=== PATIENT | male | born 1940 | race Caucasian/White ===

== ENCOUNTER 2017-07-17 09:17 | Inpatient (IN) | payer OTHER ==
[2017-06-18 11:48] VITALS: BMI 41.0
--- NOTE | 2017-06-18 12:24 | PAT Medication Instructions ---
Service Date Jun 18, 2017. Current Home Medication List Amlodipine Besylate (Norvasc), 2.5 MG PO HS Amoxicillin (Amoxil), 500 MG PO TID PRN for WHEN SEE DENTIST Ascorbic Acid (Vitamin C), 500 MG PO BID Aspirin (Aspirin Ec), 81 MG PO HS Biotin (Biotin), 5,000 MCG PO QAM Furosemide (Furosemide), 20 MG PO 5XWK Ibuprofen Tab (Advil), 400 MG PO PRN Misc Natural Products (Osteo Bi-Flex Advanced Do), 1 TAB PO BID Multivitamin (Multivitamin), 1 TAB PO BID Nitroglycerin (Nitrostat), 0.4 MG UT PRN [place]-3 Fatty Acids (Fish Oil), 1 TAB PO BID Simvastatin (Zocor), 20 MG PO HS Topiramate (Topiramate), 75 MG PO BID Valacyclovir (Valtrex), 1,000 MG PO UD PRN for RN Warfarin Sodium (Warfarin Sodium), 7.5 MG PO HS [Nasal Crom], 1 SPRAY INH for STUFFY NOSE Medication Instructions For Your Scheduled Surgery - Continue as directed: Amoxicillin (Amoxil), 500 MG PO TID PRN for WHEN SEE DENTIST - Check with surgeon for instructions: Ibuprofen Tab (Advil), 400 MG PO PRN - Check with surgeon/coumadin clinic for instructions: Warfarin Sodium (Warfarin Sodium), 7.5 MG PO HS - Hold the following medications 2 weeks prior to surgery: [place]-3 Fatty Acids (Fish Oil), 1 TAB PO BID Misc Natural Products (Osteo Bi-Flex Advanced Do), 1 TAB PO BID - Hold the following medications the morning of surgery: Valacyclovir (Valtrex), 1,000 MG PO UD PRN for RN Furosemide (Furosemide), 20 MG PO 5XWK Biotin (Biotin), 5,000 MCG PO QAM Ascorbic Acid (Vitamin C), 500 MG PO BID Multivitamin (Multivitamin), 1 TAB PO BID - Take the following medications the morning of surgery with a sip of water: [Nasal Crom], 1 SPRAY INH for STUFFY NOSE Topiramate (Topiramate), 75 MG PO BID Nitroglycerin (Nitrostat), 0.4 MG UT PRN (if needed) - Take the following medications as scheduled the night before surgery: [Nasal Crom], 1 SPRAY INH for STUFFY NOSE (if needed) Valacyclovir (Valtrex), 1,000 MG PO UD PRN for RN (if needed) Topiramate (Topiramate), 75 MG PO BID Simvastatin (Zocor), 20 MG PO HS Nitroglycerin (Nitrostat), 0.4 MG UT PRN (if needed) Multivitamin (Multivitamin), 1 TAB PO BID Aspirin (Aspirin Ec), 81 MG PO HS Ascorbic Acid (Vitamin C), 500 MG PO BID Amlodipine Besylate (Norvasc), 2.5 MG PO HS Multivitamin (Multivitamin), 1 TAB PO BID If you have any questions please call us at [phone] or [phone] or [phone]
--- NOTE | 2017-06-18 13:23 | DIAGNOSTIC IMAGING REPORT ---
CHEST 2 VIEWS ROUTINE HISTORY: 76 years-old Male PAT preoperative exam without acute chest complaints. COMPARISON: Radiograph 03/14/2013 TECHNIQUE: PA and lateral views of the chest FINDINGS: Cardiomediastinal and hilar silhouettes are within normal limits. Atherosclerosis of the aorta. There is no pneumothorax, pleural effusion, focal airspace consolidation or overt pulmonary edema. Lungs are mildly hyperinflated. Multilevel endplate spurring of the spine. Loop recorder device projects over the left chest wall. IMPRESSION: No acute process. The above report was generated using voice recognition software. It may contain grammatical, syntax or spelling errors. Electronically signed by: Abdias Mcdonough M.D. 06/18/2017 1:22 PM Dictated Date/Time: 06/18/2017 1:20 PM
[2017-06-18 13:39] LABS: BASO % 0.7 %; BASO ABS # 0.04 K/uL (0-0.2); EOS % 2.8 %; EOS ABS # 0.17 K/uL (0-0.5); HEMATOCRIT 46.2 % (42-52); HEMOGLOBIN 16.1 g/dL (14.0-18.0); IG# 0.02 K/uL (0.00-0.02); LYMPH % 24.1 %; LYMPH ABS # 1.47 K/uL (1.2-3.4); MEAN CELL VOLUME 98.7 fL (80-100); MEAN CORPUSCULAR HEMOGLOBIN 34.4 pg (25-34); MEAN CORPUSCULAR HGB CONC 34.8 g/dl (32-36); MEAN PLATELET VOLUME 10.4 fL (7.4-10.4); MONO % 10.2 %; MONO ABS # 0.62 K/uL (0.11-0.59); NEUT % 61.9 %; NEUT ABS # 3.77 K/uL (1.4-6.5); PLATELET COUNT 147 K/uL (130-400); RED CELL DISTRIBUTION WIDTH CV 13.4 % (11.5-14.5); RED CELL DISTRIBUTION WIDTH SD 47.8 fL (36.4-46.3); WHITE BLOOD COUNT 6.09 K/uL (4.8-10.8)
[2017-06-18 13:48] LABS: INR 2.6 (0.9-1.1); PTT PATIENT 36.4 SECONDS (21.0-31.0)
[2017-06-18 14:31] LABS: ALBUMIN 3.6 gm/dl (3.4-5.0); CALCIUM 8.7 mg/dl (8.5-10.1); CREATININE 1.22 mg/dl (0.60-1.40); POTASSIUM 3.9 mmol/L (3.5-5.1)
--- NOTE | 2017-06-19 12:49 | HISTORY & PHYSICAL EXAMINATION ---
DATE OF ADMISSION: 07/17/2017 CHIEF COMPLAINT: Left knee pain. HISTORY OF PRESENT ILLNESS: Mr. Thakkar is a 76-year-old male with a multiple year history of left knee pain. The patient rates his pain at 10/10. He has pain with his daily activities. He has limited standing and walking tolerance. Pain is worse with weightbearing. The patient has had injections, home exercise program and limited NSAIDs due to Coumadin. He also ambulates with a cane. He has failed conservative treatment and is scheduled for a left knee replacement. PAST MEDICAL HISTORY: Atrial flutter and a history of heart disease with [place] in 1997. He denies diabetes or DVT. PAST SURGICAL HISTORY: T&A, vasectomy, ORIF of the right ankle, cholecystectomy, right knee arthroscopy, right knee replacement, and bilateral cataract extraction and lunchroom monitor. SOCIAL HISTORY: The patient denies tobacco use. He does drink alcohol rarely. He lives in a single story home. He is and retired. FAMILY HISTORY: Negative for DVT. MEDICATIONS: Furosemide 20 mg daily, simvastatin 20 mg daily, NitroQuick p.r.n., amoxicillin p.r.n., Norvasc 2.5 mg daily, Ecotrin 81 mg daily, Coumadin 7.5 mg daily, omega 3 fish oil, biotin, multivitamin, Vanessa-C, Move Free, valacyclovir p.r.n., and topiramate 50 mg 1-1/2 tablets b.i.d. ALLERGIES: tubersol CAUSES SWELLING. REVIEW OF SYSTEMS: See HPI. Ten other systems reviewed, all negative. PHYSICAL EXAMINATION: VITAL SIGNS: Height 5 feet 11, weight 300 pounds, and BMI is 42. GENERAL: This is a well-developed and well-nourished male who is alert and oriented x3. Mood and affect are appropriate. HEENT: Normocephalic and atraumatic. Mucous membranes are moist and intact. NECK: Supple without lymphadenopathy. HEART: Regular rate and rhythm without murmurs, rubs or gallops. LUNGS: Clear to auscultation without wheezes or rhonchi. ABDOMEN: Soft and nontender. Bowel sounds are equal and active. EXTREMITIES: No ecchymosis, redness or warmth. He has varus deformity. Range of motion is from 5-100 degrees. He has no laxity. He is neurovascularly intact with +5/5 strength. X-RAY EXAMINATION: AP and lateral views show joint space narrowing and osteophyte formation. IMPRESSION: Degenerative joint disease, left knee. PLAN: The patient will be admitted for a left total knee replacement. We will plan on resuming Coumadin for DVT prophylaxis. He follows with the [facility] clinic and he is going to do home health for PT upon discharge. ISAURO
[2017-07-17] VITALS (8 sets, daily range): BP systolic 102–135; BP diastolic 67–84; PULSE 62–78; TEMP 36.4–36.8; O2SAT 95–97; Ht 180.3 cm; Wt 143.2 kg
[~2017-07-17] VITALS: Ht 180.3 cm; Wt 143.2 kg
[2017-07-17] MEDS: TRANEXAMIC ACID INJ 1,000 MG x 2 Bags IV SCH ×4 (06:30→11:17)
[~2017-07-17 09:17] MED LIST: ACETAMINOPHEN 500 MG TAB PO SCH; AMLO5TAB2 PO; AMOX500C3 PO; ASCO1CAP3 PO; ASPI81TA28 PO; BIOT1CAP3 PO; BUPIVACAINE 0.25% 30 ML VIAL ONE; BUPIVACAINE 0.5 % 5 MG/1 ML PF 10ML VIAL ONE; CEFAZOLIN 3000MG IV PUSH 22.5 ML IV SCH; CeleBREX 200 MG CAP PO SCH; DEXAMETHASONE 4 MG TAB PO SCH; FAMOTIDINE 20 MG TAB PO SCH; GABAPENTIN 600 MG PO SCH; IBUP-103 PO; LACTATED RINGER'S 1000ML 1,000 ML IV SCH; LACTATED RINGER'S 1000ML 500 ML IV SCH; LACTATED RINGER'S 1000ML IV SCH; LSX20 PO; METOCLOPRAMIDE HCL 10 MG TAB PO SCH; MISCTAB78 PO; MULT-506 PO; NASAL CROM INH; NITR0.4S UT; OMEG-27 PO; ROPIVACAINE 5MG/ML 30 ML 150 MG, BUPIVACAINE 0.5% MPF INJ 30 ML, EpINEphrine HCL INJ 0.... INFIL SCH; SIMV10TA2 PO; TOPI50TA25 PO; VALA500T60 PO; WARF-284 PO
--- NOTE | 2017-07-17 09:36 | History & Physical Bridge Note ---
H&P Re-Evaluation Bridge Note: I have examined the patient, reviewed the History & Physical and in the interval since the performance of the History & Physical I have noted the following changes of clinical significance: No changes noted
[2017-07-17 10:27] LABS: INR 1.1 (0.9-1.1); PTT PATIENT 26.9 SECONDS (21.0-31.0)
[2017-07-17] MEDS ORDERED: FENTANYL CITRATE INJ 50 MCG/1 ML 2 ML VIAL ONE (11:08)
[2017-07-17] MEDS ORDERED: POVIDONE-IODINE OP SOLN 30 ML BTL ONE (11:09)
[2017-07-17] MEDS ORDERED: ORTHO JOINT ANESTHETIC ONE (11:09)
[2017-07-17] MEDS ORDERED: BACITRACIN 50000 UNIT VIAL ONE (11:09)
[2017-07-17] MEDS ORDERED: MIDAZOLAM HCL 1 MG/ML 2ML VIAL ONE ×2 (11:09)
[2017-07-17] MEDS ORDERED: PROPOFOL IV EMULSION 10 MG/ML 20 ML VIAL IV ONE (11:10)
[2017-07-17] MEDS ORDERED: FENTANYL CITRATE INJ 50 MCG/1 ML 2 ML VIAL IV PRN (11:15)
[2017-07-17] MEDS ORDERED: MEPERIDINE HCL 25 MG/ML CARP IV PRN (11:15)
[2017-07-17] MEDS ORDERED: ONDANSETRON INJ 2 MG/ML 2 ML VIAL IV PRN ×2 (11:15→13:30)
[2017-07-17] MEDS ORDERED: HYDROmorphone INJ 1 MG/ML SYR IV PRN (11:15)
[2017-07-17] MEDS ORDERED: ATROPINE SULFATE 0.1 MG/ML 5ML SYR IV PRN (11:15)
[2017-07-17] MEDS ORDERED: LABETALOL HCL IV 5 MG/ML 20ML IV PRN (11:15)
[2017-07-17] MEDS ORDERED: EpHEDrine SULFATE INJ 50 MG/ML AMP IV PRN (11:15)
--- NOTE | 2017-07-17 12:48 | [facility] Post Operative Brief Note ---
Immediate Operative Summary Operative Date Jul 17, 2017. Pre-Operative Diagnosis Left Knee Degenerative Joint Disease Post-Operative Diagnosis Same as preop Procedure(s) Performed Left Total Knee Arthroplasty Surgeon Dr. Collins Information Security Architect Surgeon(s) Devyn Ruff PA-C Estimated Blood Loss 20 ml Findings Consistent with Post-Op Diagnosis Specimens A. Left Knee Bone and Tissue Anesthesia Type MAC Spinal Regional Complication(s) none Disposition Accompanied Pt To Recover: no Disposition: Recovery Room / PACU
[2017-07-17] MEDS ORDERED: EpHEDrine SULFATE 50MG/5ML SYR ONE (12:53)
--- NOTE | 2017-07-17 13:05 | OPERATIVE REPORT ---
DATE OF OPERATION: 07/17/2017 PREOPERATIVE DIAGNOSIS: Osteoarthritis, left knee. POSTOPERATIVE DIAGNOSIS: Osteoarthritis, left knee. PROCEDURE: Left total knee arthroplasty. SURGEON: Dr. Collins. DAMAGE APPRAISER: Devyn Ruff PA-C ANESTHESIA: Spinal. COMPLICATIONS: None. IMPLANTS USED: Femoral size 5, tibia size 3, tibial poly 13 and patella size 36 with a stem. OPERATION AND FINDINGS: Following induction of spinal anesthesia, the patient's left leg was prepped and draped in the usual sterile manner. Limb was exsanguinated with an Esmarch bandage and tourniquet was inflated to 350 mmHg. A longitudinal incision was made anteriorly. Subcutaneous tissue was sharply dissected. Electrocautery was used for hemostasis. Prepatellar bursa was incised and median parapatellar incision was performed. Patella was everted and the knee was flexed. Fat pad was removed to aid in visualization and the anterior and posterior cruciate ligaments were removed. The medial face of the tibia was cleared of soft tissue first with a Bovie and a Moore elevator. This tissue was retracted posteriorly using a blunt Hohmann. A Zimmerman retractor was used to expose the synovium above on the anterior aspect of the femur and this was removed down to bone. The PSI guide was placed on the distal femur and two pins were placed anteriorly and kept in position and two additional pins were placed distally and removed. The distal femoral cutting block was placed in position and the distal femoral cut was used in the +0 setting. Next, the cutting block was removed and the femoral 5 block was placed in the distal end of the femur. Care was taken to ensure appropriate external rotation and feeler gauge was used to ensure no notching would occur. The femoral block was centered on the distal femur and in the medial and lateral direction and was fixed using two bone screws. The gold pins were then removed. The oscillating saw was used to create the bone cuts and the distal femoral cutting block was removed and the reciprocating saw was used to further trim the femoral cuts as well as a deep in the area for the trochlear groove. Next, posterior condyle remnants were removed. Following this, a meniscal clamp and knife were utilized to remove the anterior portion of both medial and lateral meniscus. The proximal tibia PSI guide was placed into position and the proximal tibial cutting guide was screwed into position. The extra medullary alignment guide was utilized to ensure appropriate alignment. The proximal tibia was cut and the proximal tibial cutting block was removed and this bone fragment was removed. The appropriate guide was used to perform the notch cut on the distal femur and a lamina boulevard glassware replacer and a cochlear knife were utilized to finish both medial and lateral meniscectomies to remove any remnants of the posterior or anterior cruciate ligaments. Following this, the distal femoral component was impacted into position and blunt It was used to sublux the tibia anteriorly. The proximal tibia was sized and a 3 tibial tray was chosen as the size to be used. This was put into position and appropriate external rotation and a double check with extramedullary alignment guide was performed. The canal for the tibial stem was prepared first with a 17 mm drill and then the punch and a mallet and the trial tibial poly was placed. A 13 was chosen the size to be used. It was brought to extension and the patella was prepared with the patellar reamer. A 36 component was chosen the size to be used. The trial component was placed and knee was taken through a full range of motion and there was found to be no lateral subluxation of the tibia. No lateral release was required. The trials were all removed. The final components were obtained and assembled. Cement was mixed. The knee was thoroughly irrigated and the ortho mix was injected about the knee joint. The final components were cemented into position. After thoroughly suctioning and drying the bone ends, all excess cement was removed. The knee was held in extension while the cement hardened. The wound was irrigated and closed over a Hemovac drain. #1 Vicryl was used to close the extensor mechanism. Subcutaneous tissues closed using 0 Dexon. Skin was closed with blanca. Sterile dressing of Adaptic, 4 x 4's, sterile Webril, and Andrews was applied. The patient tolerated the procedure well. Due to the complex nature of the procedure, the entire surgery was performed with the operational assistance of Devny Ruff PA-C. The executive staff assistant, under direct supervision, was involved in the actual performance of all aspects of the surgical procedure including hemostasis, tissue retraction and incision, instrument management, patient positioning, and wound closure. DISPOSITION: Recovery room, stable. I attest to the content of the Intraoperative Record and any orders documented therein. Any exception s are noted below.
[2017-07-17] MEDS ORDERED: CEFAZOLIN IV 3,000 MG in DEXTROSE 5% 50ML 50 ML IV SCH (13:30)
[2017-07-17] MEDS ORDERED: MAGNESIUM HYDROXIDE SUSP 30 ML UDC PO PRN (13:30)
[2017-07-17] MEDS ORDERED: ZOLPIDEM TARTRATE 5 MG TAB PO PRN (13:30)
[2017-07-17] MEDS ORDERED: ALUMINUM/MAGNESIUM/SIMETH (MAALOX MAX) 30 ML UDC PO PRN (13:30)
[2017-07-17] MEDS ORDERED: MoRPHine SULFATE 2 MG/ML CARP IV PRN (13:30)
[2017-07-17] MEDS ORDERED: METOCLOPRAMIDE HCL INJ 5 MG/ML 2 ML VIAL IV PRN (13:30)
[2017-07-17] MEDS ORDERED: NITROGLYCERIN 0.4 MG SL PER TAB CHARGE UT PRN (13:30)
--- NOTE | 2017-07-17 13:58 | DIAGNOSTIC IMAGING REPORT ---
L KNEE 1 OR 2 VIEWS ROUTINE CLINICAL HISTORY: Osteoarthritis. Postop study COMPARISON: None. DISCUSSION: There are postsurgical changes of a total left knee arthroplasty and patellar resurfacing. There is air in the soft tissues consistent with recent surgery. Overlying surgical drains are evident. Femoral and tibial components appear well seated. IMPRESSION: Postsurgical changes of a total left knee arthroplasty. Electronically signed by: Deric Boles M.D. 07/17/2017 1:57 PM Dictated Date/Time: 07/17/2017 1:56 PM
[2017-07-17] MEDS ORDERED: MoRPHine SULFATE 10 MG/ML CARP/VIAL IV PRN (14:15)
--- NOTE | 2017-07-17 15:40 | Anesthesiology Progress Note ---
Anesthesia Post Op Note Date & Time Jul 17, 2017 at 15:39 Vital Signs Pain Intensity: 0 Vital Signs Past 12 Hours Date Time Temp Pulse Resp B/P (MAP) Pulse Ox O2 Delivery O2 Flow Rate FiO2 07/17/17 14:30 69 15 103/63 96 Nasal Cannula 2 07/17/17 14:20 36.3 73 14 114/63 95 Nasal Cannula 2 07/17/17 14:10 54 13 113/56 97 Nasal Cannula 2 07/17/17 14:00 64 15 119/62 96 Nasal Cannula 2 07/17/17 13:50 56 14 109/64 97 Nasal Cannula 2 07/17/17 13:40 62 18 108/60 98 Nasal Cannula 2 07/17/17 13:30 63 15 107/64 98 Nasal Cannula 2 07/17/17 13:20 36.5 77 15 92/58 97 Nasal Cannula 2 07/17/17 09:45 36.5 62 20 116/84 96 Room Air Notes Mental Status: alert / awake / arousable, participated in evaluation Pt Amnestic to Procedure: Yes Nausea / Vomiting: adequately controlled Pain: adequately controlled Airway Patency, RR, SpO2: stable & adequate BP & HR: stable & adequate Hydration State: stable & adequate Neuraxial Anesthesia: was administered, sensory block is resolving Anesthetic Complications: no major complications apparent
[2017-07-17] MEDS: D5W AND 1/2NSS + 20MEQ KCL 1,000 ML IV SCH ×2 (15:46→23:18)
--- NOTE | 2017-07-17 15:59 | Medical Consult ---
Consultation Date of Consultation: Jul 17, 2017. Attending Physician: Marc Collins M.D. Reason for Consultation: medical management History of Present Illness Mr. Thakkar is post op left TKA today. He has a pmhx of [place] on Coumadin, [place] in 1997, cholycystectomy and currently has a loop recorder. ROS Constitutional: no chills, aches, sweats or fever Respiratory: no sob,cough, sputum, or wheezing Cardiac: no chest pain, palpitations, edema, orthopnea or lightheadedness GI: no abdominal pain, nausea, vomiting, diarrhea or constipation : no dysuria or hesitancy Extremities: no joint pain or weakness Skin: no rash All other systems reviewed and negative Family History Unknown - patient is an orphan Social History Smoking Status: Never Smoker Smokeless Tobacco Use: No Alcohol Use: none Drug Use: none Marital Status: Housing Status: lives with family Occupation Status: retired Allergies Coded Allergies: Tuberculin Purified Protein Derivat (Verified Allergy, Mild, SWELLING ARM , 07/17/17) Uncoded Allergies: CURARE (Adverse Reaction, Unknown, NAUSEA/VOMITING, 06/18/17) Home Medications Active Reported Valtrex (Valacyclovir HCl) 500 Mg Tab 1,000 Mg PO UD PRN Advil (Ibuprofen) 200 Mg Tab 400 Mg PO PRN Aspirin Ec (Aspirin) 81 Mg Tab 81 Mg PO HS Biotin 5,000 Mcg Cap 5,000 Mcg PO QAM Amoxil (Amoxicillin) 500 Mg Cap 500 Mg PO TID PRN Nitrostat (Nitroglycerin) 0.4 Mg Sub 0.4 Mg UT PRN [Nasal Crom] 1 [place] INH PRN Osteo Bi-Flex Advanced Do (Misc Natural Products) 1 Tab Tab 1 Tab PO BID Vitamin C (Ascorbic Acid) 500 Mg Cap 500 Mg PO BID Multivitamin (Multivitamins) Tab 1 Tab PO BID Topiramate 50 Mg Tab 75 Mg PO BID Fish Oil ([place]-3 Fatty Acids) 1 Cap Cap 1 Tab PO BID Warfarin Sodium 7.5 Mg Tab 7.5 Mg PO HS Zocor (Simvastatin) 10 Mg Tab 20 Mg PO HS Norvasc (Amlodipine Besylate) 5 Mg Tab 2.5 Mg PO HS Furosemide 20 Mg Tab 20 Mg PO 5XWK 2 PILLS THEN 1 PILL ALTERNATING FRIDAY,FRI, 40MG FRIDAY AND FRIDAY 20MG NOT ON FRIDAY OR FRIDAY Current Inpatient Medications Current Inpatient Medications Medications (Trade) Dose Ordered Sig/Gokul Route Start Time Stop Time Status Last Admin Dose Admin Cefazolin Sodium 22.5 ml @ 3 mls/min PREOP IV 07/17/17 06:00 07/17/17 18:00 07/17/17 11:39 3 MLS/MIN Acetaminophen (Tylenol Tab) 1,000 mg PREOP PO 07/17/17 06:00 07/17/17 18:00 07/17/17 10:29 1,000 MG Celecoxib (CeleBREX CAP) 200 mg PREOP PO 07/17/17 06:00 07/17/17 18:00 07/17/17 10:27 200 MG Dexamethasone (Decadron Tab) 8 mg PREOP PO 07/17/17 06:00 07/17/17 18:00 07/17/17 10:27 8 MG Famotidine (Pepcid Tab) 20 mg PREOP PO 07/17/17 06:00 07/17/17 18:00 07/17/17 10:28 20 MG Gabapentin (Neurontin Cap) 600 mg PREOP PO 07/17/17 06:00 07/17/17 18:00 07/17/17 10:27 600 MG Metoclopramide HCl (Reglan Tab) 10 mg PREOP PO 07/17/17 06:00 07/17/17 18:00 07/17/17 10:28 10 MG Fentanyl Citrate (Fentanyl Inj) 50 mcg Q5M PRN IV 07/17/17 11:15 07/17/17 16:15 Hydromorphone HCl (Dilaudid Inj) 0.5 mg Q5M PRN IV 07/17/17 11:15 07/17/17 16:15 Meperidine HCl (Demerol Inj) 25 mg Q5M PRN IV 07/17/17 11:15 07/17/17 16:15 Ondansetron HCl (Zofran Inj) 4 mg ONE PRN IV 07/17/17 11:15 07/17/17 16:15 Labetalol HCl (Normodyne IV) 5 mg Q5M PRN IV 07/17/17 11:15 07/17/17 16:15 Ephedrine Sulfate (EpHEDrine SULFATE INJ) 5 mg Q5M PRN IV 07/17/17 11:15 07/17/17 16:15 Atropine Sulfate (Atropine Sulfate 0.1mg/ml Inj) 0.5 mg Q1M PRN IV 07/17/17 11:15 07/17/17 16:15 Potassium Chloride/Dextrose/ Sod Cl 1,000 ml @ 100 mls/hr Q10H IV 07/17/17 15:30 07/18/17 13:20 Ketorolac Tromethamine (Toradol Inj) 15 mg Q6 IV. 07/17/17 18:00 07/18/17 17:59 Celecoxib (CeleBREX CAP) 200 mg BID PO 07/18/17 21:00 08/17/17 20:59 Oxycodone HCl (Roxicodone Immediate Rel Tab) 1 TABLET FOR PAIN RATING... Q4H PRN PO 07/17/17 13:30 07/31/17 13:29 Morphine Sulfate (MoRPHine SULFATE INJ) 2 mg Q2HWA PRN IV 07/17/17 13:30 07/31/17 13:29 Acetaminophen (Tylenol Tab) 1,000 mg Q8 PO 07/17/17 22:00 08/16/17 21:59 Magnesium Hydroxide (Milk Of Magnesia Susp) 30 ml Q6H PRN PO 07/17/17 13:30 08/16/17 13:29 Docusate Sodium (coLACE CAP) 100 mg BID PO 07/17/17 21:00 08/16/17 20:59 Diphenhydramine HCl (Benadryl Cap) 25 mg Q8H PRN PO 07/17/17 13:30 08/16/17 13:29 Al Hydrox/Mg Hydrox/Simethicone (Maalox Max Susp) 15 ml Q4H PRN PO 07/17/17 13:30 08/16/17 13:29 Zolpidem Tartrate (Ambien Tab) 5 mg HSZ PRN PO 07/17/17 13:30 08/16/17 13:29 Multivitamins (Multivitamin Tab) 1 tab QAM PO 07/18/17 09:00 08/17/17 08:59 Ondansetron HCl (Zofran Inj) 4 mg Q6H PRN IV 07/17/17 13:30 08/16/17 13:29 Metoclopramide HCl (Reglan Inj) 10 mg Q6H PRN IV 07/17/17 13:30 08/16/17 13:29 Ferrous Gluconate (Ferrous Gluconate Tab) 324 mg TIDM PO 07/17/17 16:45 08/16/17 17:59 Pantoprazole Sodium (Protonix Tab) 40 mg QAM PO 07/18/17 09:00 07/22/17 08:59 Tamsulosin HCl (Flomax Cap) 0.4 mg QAM PRN PO 07/17/17 13:30 08/16/17 13:29 Dexamethasone Sodium Phosphate 10 mg/Syringe 2.5 ml @ 1 mls/min 0730 IV 07/18/17 07:30 07/18/17 07:33 Amlodipine Besylate (Norvasc Tab) 2.5 mg HS PO 07/17/17 21:00 08/16/17 20:59 Aspirin (Ecotrin Tab) 81 mg HS PO 07/17/17 21:00 08/16/17 20:59 Nitroglycerin (Nitrostat Tab) 0.4 mg UD PRN UT 07/17/17 13:30 08/16/17 13:29 Simvastatin (Zocor Tab) 20 mg HS PO 07/17/17 21:00 08/16/17 20:59 Topiramate (Topamax Tab) 75 mg BID PO 07/17/17 21:00 08/16/17 20:59 Warfarin Sodium (Coumadin Tab) 7.5 mg DAILY@1600 PO 07/17/17 16:00 08/16/17 15:59 Morphine Sulfate (MoRPHine SULFATE INJ) 4 mg Q2HWA PRN IV 07/17/17 14:15 07/31/17 14:14 Morphine Sulfate (MoRPHine SULFATE INJ) 6 mg Q2HWA PRN IV 07/17/17 14:15 07/31/17 14:14 Cefazolin Sodium 3000 mg/Syringe 22.5 ml @ 4.5 mls/min Q8H IV 07/17/17 20:00 07/18/17 04:04 Physical Exam Date Time Temp Pulse Resp B/P (MAP) Pulse Ox O2 Delivery O2 Flow Rate FiO2 07/17/17 15:00 96 Nasal Cannula 2.0 07/17/17 15:00 96 Nasal Cannula 2.0 07/17/17 15:00 36.8 64 18 102/67 (79) 96 Nasal Cannula 2.0 07/17/17 14:30 69 15 103/63 96 Nasal Cannula 2 07/17/17 14:20 36.3 73 14 114/63 95 Nasal Cannula 2 07/17/17 14:10 54 13 113/56 97 Nasal Cannula 2 07/17/17 14:00 64 15 119/62 96 Nasal Cannula 2 07/17/17 13:50 56 14 109/64 97 Nasal Cannula 2 07/17/17 13:40 62 18 108/60 98 Nasal Cannula 2 07/17/17 13:30 63 15 107/64 98 Nasal Cannula 2 07/17/17 13:20 36.5 77 15 92/58 97 Nasal Cannula 2 07/17/17 09:45 36.5 62 20 116/84 96 Room Air General: no distress Eyes: normal inspection, PERLL Respiratory: chest non tender, clear to auscultation, normal breath sounds, no respiratory distress, no accessory muscle use Cardiac: regular rate and rhythm, no rub or gallop, no murmur, no edema, no jvd GI/: active bowel sounds, no abd pain or tenderness, soft, non distended Extremities: normal range of motion, normal strength, non tender Neuro/Psych: alert and oriented x 3, normal mood and affect Skin: normal color, dry Laboratory Results Last 24 Hours Test 07/17/17 10:08 Prothrombin Time 11.7 SECONDS Prothromb Time International Ratio 1.1 Activated Partial Thromboplast Time 26.9 SECONDS Partial Thromboplastin Ratio 1.0 Assessment & Plan Mr. Thakkar is a 76 year old man post op L TKA Post op - monitor for acute hemorrhage - cbc am - bowel regimen, pain management per primary team A.flutter/ CAD - patient currently monitored on telemetry - restart Coumadin today - continue ASA, statin - metoprolol IV prn, otherwise patient does not appear to take anything for rate control - patient had ablation in 2013 DVT proph: restart Coumadin IMPORT/EXPORT ANALYST Physician Supervision Note: I interviewed and examined the patient. Discussed with Racheal Zepeda NP and agree with findings and plan as documented in the note. Any exceptions or clarifications are listed here: None Patient is in telemetry is a history of a ablation for atrial arrhythmia he has been in sinus rhythm he is not on any rate controlling medication vitals are stable Cardiac exam is regular lungs are clear distal left extremity is with warm and intact pulses and cap refill sensation is coming back to the block is wearing off Patient is a history of atrial arrhythmia currently in sinus rhythm continue to monitor overnight surgery is chosen Coumadin anticoagulation for DVT prevention as needed metoprolol be offered if rate control is required Documented By: Raul Soni
[2017-07-17] MEDS ORDERED: METOPROLOL TARTRATE 1 MG/ML VIAL IV PRN (16:15)
[2017-07-17] MEDS: WARFARIN SOD 7.5 MG TAB PO SCH (16:26)
[2017-07-17] MEDS: FERROUS GLUCONATE 324 MG TAB PO SCH (16:27)
[2017-07-17] MEDS: KETOROLAC TROMETHAMINE 15 MG/ML VIAL IV. SCH ×2 (16:29→23:17)
[2017-07-17] MEDS: MoRPHine SULFATE 4 MG/ML 1 ML CARP\\VIAL IV PRN (17:52)
[2017-07-17] MEDS: CEFAZOLIN IV 3,000 MG in SYRINGE 0 ML IV SCH (20:47)
[2017-07-17] MEDS: DOCUSATE SODIUM 100 MG CAP PO SCH (20:49)
[2017-07-17] MEDS: AMLODIPINE BESYLATE 5 MG TAB PO SCH (20:52)
[2017-07-17] MEDS: ASPIRIN 81 MG ECTAB PO SCH (20:53)
[2017-07-17] MEDS: TOPIRAMATE 50 MG TAB PO SCH (20:54)
[2017-07-17] MEDS: SIMVASTATIN 20 MG TAB PO SCH (20:55)
[2017-07-17] MEDS: ACETAMINOPHEN 500 MG TAB PO SCH (20:56)
[2017-07-18] VITALS (7 sets, daily range): BP systolic 106–149; BP diastolic 57–78; PULSE 57–92; TEMP 36.4–36.8; O2SAT 93–96
[2017-07-18] MEDS: MoRPHine SULFATE 4 MG/ML 1 ML CARP\\VIAL IV PRN (01:48)
[2017-07-18] MEDS: CEFAZOLIN IV 3,000 MG in SYRINGE 0 ML IV SCH (03:29)
[2017-07-18] MEDS: KETOROLAC TROMETHAMINE 15 MG/ML VIAL IV. SCH ×2 (05:56→11:36)
[2017-07-18] MEDS: ACETAMINOPHEN 500 MG TAB PO SCH ×3 (05:56→21:54)
[2017-07-18] MEDS ORDERED: DEXAMETHASONE INJ 10 MG in SYRINGE 0 ML IV SCH (07:30)
[2017-07-18] MEDS: MULTIVITAMIN TAB PO SCH (07:41)
[2017-07-18] MEDS: PANTOprazole SOD 40 MG TAB PO SCH (07:41)
[2017-07-18] MEDS: TAMSULOSIN HCL 0.4 MG CAP PO PRN (07:42)
[2017-07-18] MEDS: TOPIRAMATE 50 MG TAB PO SCH ×2 (07:43→21:55)
[2017-07-18] MEDS: DOCUSATE SODIUM 100 MG CAP PO SCH ×2 (07:44→21:53)
[2017-07-18] MEDS: FERROUS GLUCONATE 324 MG TAB PO SCH ×4 (07:45→18:11)
--- NOTE | 2017-07-18 07:51 | Orthopedic Progress Note ---
Orthopedic Progress Note Date of Service Jul 18, 2017. Subjective Post OP Day: 1 Reports: feeling well (Pt in Telemetry overnight for cardiac monitoring, no events overnight) Objective N/V intact, dressing C/D/I (Hemovac in place, Prevena in place), toes mobile Date Time Temp Pulse Resp B/P (MAP) Pulse Ox O2 Delivery O2 Flow Rate FiO2 07/18/17 07:10 36.4 57 20 113/62 (79) 96 Room Air 07/18/17 04:35 36.7 63 19 122/69 (86) 95 Room Air 07/18/17 04:00 96 Room Air 07/17/17 23:59 96 Room Air 07/17/17 23:56 36.6 69 19 117/67 (84) 97 Room Air 07/17/17 20:21 36.4 63 18 135/77 (96) 95 Room Air 07/17/17 20:00 96 Room Air 07/17/17 17:00 78 18 112/68 (83) 96 Room Air 07/17/17 15:30 66 18 119/72 (88) 97 Nasal Cannula 2.0 07/17/17 15:00 96 Nasal Cannula 2.0 07/17/17 15:00 96 Nasal Cannula 2.0 07/17/17 15:00 36.8 64 18 102/67 (79) 96 Nasal Cannula 2.0 07/17/17 14:30 69 15 103/63 96 Nasal Cannula 2 07/17/17 14:20 36.3 73 14 114/63 95 Nasal Cannula 2 07/17/17 14:10 54 13 113/56 97 Nasal Cannula 2 07/17/17 14:00 64 15 119/62 96 Nasal Cannula 2 07/17/17 13:50 56 14 109/64 97 Nasal Cannula 2 07/17/17 13:40 62 18 108/60 98 Nasal Cannula 2 07/17/17 13:30 63 15 107/64 98 Nasal Cannula 2 07/17/17 13:20 36.5 77 15 92/58 97 Nasal Cannula 2 07/17/17 09:45 36.5 62 20 116/84 96 Room Air Laboratory Results 24 Hours: Test 07/17/17 10:08 07/18/17 07:05 Prothromb Time International Ratio 1.1 Prothrombin Time 11.7 SECONDS Additional Notes: Labs pending Assessment & Plan Assessment: 76 yo male stable POD #1 s/p left TKA Plan: 1. Med management- transfer to ortho floor per medicine 2. DVT prophylaxis- resume normal Coumadin 3. PT/OT 4. D/C planning- home w/ HH
--- NOTE | 2017-07-18 07:52 | Discharge Instructions ---
Discharge Instructions Date of Service Jul 18, 2017. Admission Reason for Admission: Left Knee Osteoarthritis Discharge Discharge Diagnosis / Problem: Left knee arthritis Discharge Goals Goal(s): Decrease discomfort, Improve function Activity Recommendations Activity Limitations: as noted below Weightbearing Status: Left weightbearing (as tolerated) . Instructions / Follow-Up Instructions / Follow-Up ACTIVITY RECOMMENDATIONS: SELF CARE INSTRUCTIONS AFTER TOTAL KNEE REPLACEMENT A. You may need to continue a physical therapy program after discharge from the hospital. There are several options available to you. Your doctor will assist you in selecting the best one for you. 1. An out-patient facility 2 to 3 times a week for therapy or home therapy. 2. Continue working on all exercises taught to you in the hospital. Your goals should be to increase bending of your knee to 90 degrees and beyond and to fully straighten your knee. B. You may progress at your own pace from walking with a walker or crutches to a cane; then to no assistive devices. C. Make walking a part of your daily routine. Be up as much as comfortable with rest periods throughout the day. Rest with leg elevation is very important. Use the ice wrap frequently for the first 3-4 weeks. D. There are no restrictions on activities. You may ride in a car, shop, participate in recruiting specialist and all social activities. E. Wear the long elastic stockings (ANA hose) 20 hours a day for 2 weeks after surgery. They can be removed several times a day for laundering and for a bath. F. You may shower, no tub baths until cleared by your doctor. SPECIAL CARE INSTRUCTIONS: VERY IMPORTANT TO READ AND REVIEW A. There are a few signs you need to watch for after you are home. Call [facility] [place] if you notice any of the followin. Increased severe knee pain. Some pain is expected especially when you exercise. 2. Increased swelling in your leg or knee; pain or swelling of the calf muscle in either lower leg. 3. Any fluid drainage from the incision. 4. Shortness of breath or chest pain. B. Please call [facility] [place] at if you have any concerns or questions about your operation or recovery. The doctor or his nurse will return your call promptly. C. You must take antibiotics before dental work, bladder, bowel or other surgery. Your doctor will provide you with a permanent care to carry describing this precaution. IMPORTANT: * REMEMBER TO TAKE ASPIRIN, 81 MG, TWICE DAILY FOR 4 WEEKS UNLESS OTHERWISE DIRECTED. THIS IS YOUR BLOOD THINNER. * HIGH RISK PATIENTS MAY BE PRESCRIBED A STRONGER BLOOD THINNER. THIS WILL BE PROVIDED AT DISCHARGE. * CALL IF INCREASED PAIN, REDNESS, DRAINAGE OR FEVER GREATER THAT 101. * WEAR ANA HOSE 20 HOURS PER DAY FOR 2 WEEKS. Prevena- This is a large suction dressing covering your incision. This will help pull any excess drainage from the wound and allow your incision to heal properly. You may shower with this if you can keep the unit outside of the shower. If any bleeding or leakage is noted please call your doctor's office. This will remain on your incision for 7 days and then should be removed. This can be done yourself or by the home nursing staff if applicable. The entire unit is disposable once removed. Once removed, keep incision clean and dry. If redness or drainage is noted, please call your surgeon. FOLLOW UP VISIT: If appointment is not already scheduled: Please call [facility] [place] [facility] to make a follow-up appointment for 2 weeks after your surgery at . Current Hospital Diet Patient's current hospital diet: Regular Diet Discharge Diet Recommended Diet: Regular Diet Procedures Procedures Performed: Left Total Knee Arthroplasty Pending Studies Studies pending at discharge: no Laboratory Results Hemoglobin A1c Test 06/18/17 12:31 Range/Units Estimated Average Glucose 97 mg/dl Hemoglobin A1c 5.0 4.5-5.6 % Medical Emergencies . Who to Call and When: Medical Emergencies: If at any time you feel your situation is an emergency, please call 911 immediately. . Non-Emergent Contact Non-Emergency issues call your: Surgeon Call Non-Emergent contact if: temperature is above 101.5, your pain is not controlled, wound has increased drainage, wound has increased redness . "Provider Documentation" section prepared by Devyn Ruff PA-C. . VTE Core Measure Inpt VTE Proph given/why not?: Warfarin (Coumadin), Neal Carey, SCD's [place] Drug Monitoring Program Search Results: patient reviewed within database, no issues identified
[2017-07-18 07:53] LABS: HEMATOCRIT 35.2 % (42-52); HEMOGLOBIN 12.3 g/dL (14.0-18.0); MEAN CELL VOLUME 97.8 fL (80-100); MEAN CORPUSCULAR HEMOGLOBIN 34.2 pg (25-34); MEAN CORPUSCULAR HGB CONC 34.9 g/dl (32-36); MEAN PLATELET VOLUME 10.3 fL (7.4-10.4); PLATELET COUNT 113 K/uL (130-400); RED CELL DISTRIBUTION WIDTH CV 12.6 % (11.5-14.5); RED CELL DISTRIBUTION WIDTH SD 45.2 fL (36.4-46.3); WHITE BLOOD COUNT 12.23 K/uL (4.8-10.8)
[2017-07-18 08:21] LABS: CREATININE 1.19 mg/dl (0.60-1.40); POTASSIUM 4.2 mmol/L (3.5-5.1)
[2017-07-18] MEDS: OXYCODONE HCL IR 5 MG TAB (IMMEDIATE RELEASE) PO PRN (10:15)
--- NOTE | 2017-07-18 10:47 | Hospitalist Progress Note ---
Hospitalist Progress Note Date of Service Jul 18, 2017. (Racheal Zepeda .HARMAN) Subjective Pt evaluation today including: conversation w/ patient, physical exam, chart review, lab review, review of inpatient medication list Voiding: voiding difficulty (required straight cath twice ) Mr. Thakkar is up and sitting in a chair. His pain is tolerable. He participated in PT and felt it went well. He is having voiding difficulty and required straight cathing over the night. He has not had a bowel movement yet but is passing gas ROS Constitutional: no chills, aches, sweats or fever Respiratory: no sob,cough, sputum, or wheezing Cardiac: no chest pain, palpitations, edema, orthopnea or lightheadedness GI: no abdominal pain, nausea, vomiting, diarrhea or constipation : see HPI Extremities: no joint pain or weakness Skin: no rash All other systems reviewed and negative (Racheal Zepeda .HARMAN) Medications Medications Administered Medications (Trade) Dose Ordered Sig/Gokul Route Start Time Stop Time Status Last Admin Dose Admin Cefazolin Sodium 22.5 ml @ 3 mls/min PREOP IV 07/17/17 06:00 07/17/17 18:00 DC 07/17/17 11:39 3 MLS/MIN Acetaminophen (Tylenol Tab) 1,000 mg PREOP PO 07/17/17 06:00 07/17/17 18:00 DC 07/17/17 10:29 1,000 MG Celecoxib (CeleBREX CAP) 200 mg PREOP PO 07/17/17 06:00 07/17/17 18:00 DC 07/17/17 10:27 200 MG Dexamethasone (Decadron Tab) 8 mg PREOP PO 07/17/17 06:00 07/17/17 18:00 DC 07/17/17 10:27 8 MG Famotidine (Pepcid Tab) 20 mg PREOP PO 07/17/17 06:00 07/17/17 18:00 DC 07/17/17 10:28 20 MG Gabapentin (Neurontin Cap) 600 mg PREOP PO 07/17/17 06:00 07/17/17 18:00 DC 07/17/17 10:27 600 MG Metoclopramide HCl (Reglan Tab) 10 mg PREOP PO 07/17/17 06:00 07/17/17 18:00 DC 07/17/17 10:28 10 MG Tranexamic Acid 1000 mg/Sodium Chloride 110 ml @ 660 mls/hr TODAY@06,0630 IV 07/17/17 06:00 07/17/17 06:39 DC 07/17/17 11:17 660 MLS/HR Ropivacaine 150 mg/Bupivacaine HCl 30 ml/ Epinephrine HCl 0.15 mg/Ketorolac Tromethamine 30 mg/Dexamethasone Sodium Phosphate 4 mg/Ketamine HCl 10 mg/Clonidine 100 mcg/Sodium Chloride 93.35 ml @ 0 mls/hr TODAY@06 INFIL 07/17/17 06:00 07/17/17 06:01 DC 07/17/17 12:24 93.35 MLS/HR Lactated Ringer's 500 ml @ 999 mls/hr Q31M IV 07/17/17 06:00 07/17/17 06:30 DC 07/17/17 10:26 999 MLS/HR Povidone Iodine (Betadine Ophthalmic Prep Solution) 30 ml STK-MED ONCE .ROUTE 07/17/17 11:09 07/17/17 11:10 DC 07/17/17 12:25 30 ML Bacitracin (Bacitracin Inj) 50,000 units STK-MED ONCE .ROUTE 07/17/17 11:09 07/17/17 11:10 DC 07/17/17 12:25 50,000 UNITS Potassium Chloride/Dextrose/ Sod Cl 1,000 ml @ 100 mls/hr Q10H IV 07/17/17 15:30 07/18/17 13:20 07/17/17 23:18 100 MLS/HR Ketorolac Tromethamine (Toradol Inj) 15 mg Q6 IV. 07/17/17 18:00 07/18/17 17:59 07/18/17 05:56 15 MG Oxycodone HCl (Roxicodone Immediate Rel Tab) 1 TABLET FOR PAIN RATING... Q4H PRN PO 07/17/17 13:30 07/31/17 13:29 07/18/17 10:15 10 MG Acetaminophen (Tylenol Tab) 1,000 mg Q8 PO 07/17/17 22:00 08/16/17 21:59 07/18/17 05:56 1,000 MG Docusate Sodium (coLACE CAP) 100 mg BID PO 07/17/17 21:00 3/24/18 20:59 07/18/17 07:44 100 MG Multivitamins (Multivitamin Tab) 1 tab QAM PO 07/18/17 09:00 08/17/17 08:59 07/18/17 07:41 1 TAB Ferrous Gluconate (Ferrous Gluconate Tab) 324 mg TIDM PO 07/17/17 16:45 08/16/17 17:59 07/18/17 07:45 324 MG Pantoprazole Sodium (Protonix Tab) 40 mg QAM PO 07/18/17 09:00 07/22/17 08:59 07/18/17 07:41 40 MG Tamsulosin HCl (Flomax Cap) 0.4 mg QAM PRN PO 07/17/17 13:30 08/16/17 13:29 07/18/17 07:42 0.4 MG Dexamethasone Sodium Phosphate 10 mg/Syringe 2.5 ml @ 1 mls/min 0730 IV 07/18/17 07:30 07/18/17 07:33 DC 07/18/17 07:43 1 MLS/MIN Amlodipine Besylate (Norvasc Tab) 2.5 mg HS PO 07/17/17 21:00 08/16/17 20:59 07/17/17 20:52 2.5 MG Aspirin (Ecotrin Tab) 81 mg HS PO 07/17/17 21:00 08/16/17 20:59 07/17/17 20:53 81 MG Simvastatin (Zocor Tab) 20 mg HS PO 07/17/17 21:00 08/16/17 20:59 07/17/17 20:55 20 MG Topiramate (Topamax Tab) 75 mg BID PO 07/17/17 21:00 08/16/17 20:59 07/18/17 07:43 75 MG Warfarin Sodium (Coumadin Tab) 7.5 mg DAILY@1600 PO 07/17/17 16:00 08/16/17 15:59 07/17/17 16:26 7.5 MG Morphine Sulfate (MoRPHine SULFATE INJ) 4 mg Q2HWA PRN IV 07/17/17 14:15 07/31/17 14:14 07/18/17 01:48 4 MG Cefazolin Sodium 3000 mg/Syringe 22.5 ml @ 4.5 mls/min Q8H IV 07/17/17 20:00 07/18/17 04:04 DC 07/18/17 03:29 4.5 MLS/MIN (Racheal Zepeda CRNP) Objective Vital Signs Date Time Temp Pulse Resp B/P (MAP) Pulse Ox O2 Delivery O2 Flow Rate FiO2 07/18/17 08:00 96 Room Air 07/18/17 07:10 36.4 57 20 113/62 (79) 96 Room Air 07/18/17 04:35 36.7 63 19 122/69 (86) 95 Room Air 07/18/17 04:00 96 Room Air 07/17/17 23:59 96 Room Air 07/17/17 23:56 36.6 69 19 117/67 (84) 97 Room Air 07/17/17 20:21 36.4 63 18 135/77 (96) 95 Room Air 07/17/17 20:00 96 Room Air 07/17/17 17:00 78 18 112/68 (83) 96 Room Air 07/17/17 15:30 66 18 119/72 (88) 97 Nasal Cannula 2.0 07/17/17 15:00 96 Nasal Cannula 2.0 07/17/17 15:00 96 Nasal Cannula 2.0 07/17/17 15:00 36.8 64 18 102/67 (79) 96 Nasal Cannula 2.0 07/17/17 14:30 69 15 103/63 96 Nasal Cannula 2 07/17/17 14:20 36.3 73 14 114/63 95 Nasal Cannula 2 07/17/17 14:10 54 13 113/56 97 Nasal Cannula 2 07/17/17 14:00 64 15 119/62 96 Nasal Cannula 2 07/17/17 13:50 56 14 109/64 97 Nasal Cannula 2 07/17/17 13:40 62 18 108/60 98 Nasal Cannula 2 07/17/17 13:30 63 15 107/64 98 Nasal Cannula 2 07/17/17 13:20 36.5 77 15 92/58 97 Nasal Cannula 2 (Racheal Zepeda CRNP) Physical Exam Notes: General: no distress Eyes: normal inspection, PERLL Respiratory: chest non tender, clear to auscultation, normal breath sounds, no respiratory distress, no accessory muscle use Cardiac: regular rate and rhythm, no rub or gallop, no murmur, no edema, no jvd GI/: active bowel sounds, no abd pain or tenderness, soft, non distended Extremities: normal range of motion, normal strength, non tender Neuro/Psych: alert and oriented x 3, normal mood and affect Skin: normal color, dry (Racheal Zepeda CRNP) Laboratory Results Last 24 Hours Test 07/18/17 07:05 White Blood Count 12.23 K/uL Red Blood Count 3.60 M/uL Hemoglobin 12.3 g/dL Hematocrit 35.2 % Mean Corpuscular Volume 97.8 fL Mean Corpuscular Hemoglobin 34.2 pg Mean Corpuscular Hemoglobin Concent 34.9 g/dl RDW Standard Deviation 45.2 fL RDW Coefficient of Variation 12.6 % Platelet Count 113 K/uL Mean Platelet Volume 10.3 fL Sodium Level 140 mmol/L Potassium Level 4.2 mmol/L Chloride Level 112 mmol/L Carbon Dioxide Level 20 mmol/L Anion Gap 8.0 mmol/L Blood Urea Nitrogen 21 mg/dl Creatinine 1.19 mg/dl Est Creatinine Clear Calc Drug Dose 78.9 ml/min Estimated GFR () 69.3 Estimated GFR (Non- 59.8 BUN/Creatinine Ratio 17.6 Random Glucose 125 mg/dl Calcium Level 8.0 mg/dl (Racheal Zepeda CRNP) Assessment and Plan Mr. Thakkar is a 76 year old man post op L TKA 07/17 Post op 07/17 - monitor for acute hemorrhage - hgb stable this am - bowel regimen, pain management per primary team A.flutter/ CAD - patient currently monitored on telemetry - no events overnight, transfer to floor - restarted Coumadin - INR in am tomorrow - continue ASA, statin - metoprolol IV prn, otherwise patient does not appear to take anything for rate control - patient had ablation in 2013 DVT proph: restart Coumadin (Racheal Zepeda CRNP) C J[employer] DEVELOPER Physician Supervision Note: I discussed with Racheal Zepeda NP and agree with findings and plan as documented in the note. Any exceptions or clarifications are listed here: None Patient is doing well postoperatively is not in any typical or difficult arrhythmias he is transferred off telemetry unit medical care will sign off at this time we will be available for emergencies and urgencies however his final disposition will be based upon surgical preference Documented By: Raul oSni (Raul Soni M.D.)
[2017-07-18] MEDS: D5W AND 1/2NSS + 20MEQ KCL 1,000 ML IV SCH (11:36)
[2017-07-18] MEDS: WARFARIN SOD 7.5 MG TAB PO SCH (15:38)
[2017-07-18] MEDS: AMLODIPINE BESYLATE 5 MG TAB PO SCH (21:53)
[2017-07-18] MEDS: ASPIRIN 81 MG ECTAB PO SCH (21:53)
[2017-07-18] MEDS: CeleBREX 200 MG CAP PO SCH (21:53)
[2017-07-18] MEDS: SIMVASTATIN 20 MG TAB PO SCH (21:55)
[2017-07-19] MEDS: ACETAMINOPHEN 500 MG TAB PO SCH ×2 (05:47→14:00)
[2017-07-19 07:56] VITALS: BP 117/83; PULSE 72; TEMP 36.8; O2SAT 95
[2017-07-19 08:09] LABS: INR 1.2 (0.9-1.1)
[2017-07-19] MEDS: MULTIVITAMIN TAB PO SCH (09:13)
[2017-07-19] MEDS: TAMSULOSIN HCL 0.4 MG CAP PO PRN (09:13)
[2017-07-19] MEDS: TOPIRAMATE 50 MG TAB PO SCH (09:13)
[2017-07-19] MEDS: FERROUS GLUCONATE 324 MG TAB PO SCH ×3 (09:13→17:55)
[2017-07-19] MEDS: DOCUSATE SODIUM 100 MG CAP PO SCH (09:13)
[2017-07-19] MEDS: CeleBREX 200 MG CAP PO SCH (09:13)
[2017-07-19] MEDS: PANTOprazole SOD 40 MG TAB PO SCH (09:13)
[2017-07-19] MEDS: OXYCODONE HCL IR 5 MG TAB (IMMEDIATE RELEASE) PO PRN ×3 (09:18→15:05)
--- NOTE | 2017-07-19 10:19 | Orthopedic Progress Note ---
Orthopedic Progress Note Date of Service Jul 19, 2017. Subjective Post OP Day: 2 Reports: feeling well, pain controlled w PO medications, Denies: complaints, chest pain, SOB, nausea / vomiting, light headedness, calf pain Objective calves soft nontender, N/V intact, capillary refill less than 2 sec., dressing C /D/I (Prevena dressing in place and functioning.), A&O x3, toes mobile Date Time Temp Pulse Resp B/P (MAP) Pulse Ox O2 Delivery O2 Flow Rate FiO2 07/19/17 08:51 Room Air 07/19/17 07:56 36.8 72 18 117/83 (94) 95 Room Air 07/18/17 22:50 Room Air 07/18/17 22:50 36.8 92 18 106/57 (73) 93 Room Air 07/18/17 21:45 149/78 (101) 07/18/17 15:44 36.5 66 18 117/73 (88) 95 Room Air 07/18/17 15:26 Room Air 07/18/17 12:17 Room Air Laboratory Results 24 Hours: Test 07/19/17 07:22 Prothromb Time International Ratio 1.2 Prothrombin Time 12.2 SECONDS Assessment & Plan Assessment: 76 yo male stable POD #2 s/p left TKA Plan: 1. Med management- transfer to ortho floor per medicine 2. DVT prophylaxis- resume normal Coumadin 3. PT/OT 4. D/C planning- home today w/ HH
[2017-07-19] MEDS ORDERED: ACET-24 PO (10:21)
[2017-07-19] MEDS ORDERED: ONDA8TAB6 PO (10:21)
[2017-07-19] MEDS ORDERED: CLB200 PO (10:21)
[2017-07-19] MEDS ORDERED: RXC5 PO (10:21)
[2017-07-19] MEDS ORDERED: TAMS0.4C38 PO (10:43)
[2017-07-19 11:00] VITALS: BP 117/83; PULSE 72; TEMP 36.8; O2SAT 95
[2017-07-19 15:24] VITALS: BP 149/85; PULSE 67; TEMP 36.3; O2SAT 99
[2017-07-19] MEDS: WARFARIN SOD 7.5 MG TAB PO SCH (16:49)
[2017-07-19] MEDS ORDERED: NURSING VERBAL MED ORDER ONE (17:15)
[2017-07-19] MEDS ORDERED: TAMSULOSIN HCL 0.4 MG CAP PO ONE (17:45)
--- NOTE | 2017-07-23 23:00 | DISCHARGE SUMMARY ---
CHIEF COMPLAINT: Left knee pain. Please see complete history and physical examination. HOSPITAL COURSE: The patient underwent left total knee arthroplasty without complication. He tolerated the procedure well and was discharged to recovery room in stable condition. His postoperative course was relatively uneventful. His postoperative pain was reasonably well controlled with a combination of spinal anesthesia, adductor canal block, intraoperative joint injection, IV and oral pain medications. He was restarted back on his normal Coumadin postoperatively for DVT prophylaxis. He also utilized ANA stockings and SCDs for additional prophylaxis. He was monitored in the telemetry unit overnight on postoperative day zero. He did not have any significant events and was transferred to the orthopedic floor the next day. Postoperative drain was discontinued by postop day 2, surgical dressing will remain in place for approximately 7 days postoperative. He tolerated postop physical therapy reasonably well as he was bending his knee and ambulating appropriately. He was discharged home on postop day 2. He will continue his physical therapy at home. He will continue his Coumadin as normal for DVT prophylaxis and follow up in our office in approximately 10-14 days for his initial postop evaluation.
== END 2017-07-19 20:40 | disposition home health service (06) | DRG 470 ==
LOC: C.ACU 09:17 → C.2T 13:29 → ENRESERV 14:16 → C.MSN 07-18 11:38
PROC: 0SRD0J9 Replacement of Left Knee Joint with Synthetic Substitute, Cemented, Open Approach (ICD-10-PCS; principal; 2017-07-17 12:00)
DX: M17.12 Unilateral primary osteoarthritis, left knee (principal); I48.92 Unspecified atrial flutter; I25.10 Atherosclerotic heart disease of native coronary artery without angina pectoris; Z79.01 Long term (current) use of anticoagulants; I25.2 Old myocardial infarction; Z88.7 Allergy status to serum and vaccine; Z79.899 Other long term (current) drug therapy